=== PATIENT | male | born 1965 | race Caucasian/White ===

== ENCOUNTER 2018-11-13 14:42 | Emergency (ER) | payer OTHER | END 2018-11-13 15:16 | disposition home or self-care (01) | LOC: BURERS 14:42 | DX: R42 Dizziness and giddiness (principal); I25.2 Old myocardial infarction; Z79.899 Other long term (current) drug therapy ==

== ENCOUNTER 2021-04-08 01:27 | Emergency (ER) | payer OTHER | END 2021-04-08 02:08 | disposition home or self-care (01) | LOC: BURERS 01:27 | DX: R20.2 Paresthesia of skin (principal); I25.2 Old myocardial infarction; N18.30 Chronic kidney disease, stage 3 unspecified; K21.9 Gastro-esophageal reflux disease without esophagitis; I25.10 Atherosclerotic heart disease of native coronary artery without angina pectoris; Z79.82 Long term (current) use of aspirin; Z79.899 Other long term (current) drug therapy | CPT/HCPCS: 93005 ==